=== PATIENT | male | born 1980 | race Caucasian/White ===

== ENCOUNTER → 2016-08-27 | Outpatient (CLI) | payer OTHER ==
[~2016-08-27] MED LIST: ADV250INH INH; ALBU17IN INH; ARTIDRO3 OP; INDO50CA PO; REST0.05 OP; ULOR80TA PO; [UNRECOGNIZED DRUG - CODE] PO
[2016-08-27 18:25] LABS: ALBUMIN 4.6 GM/DL (3.2-5.2); ALBUMIN/GLOBULIN RATIO 1.64 (1.00-1.93); ALKALINE PHOSPHATASE 107 U/L (45-117); ALT/SGPT 94 U/L (12-78); ANION GAP 8 MEQ/L (8-16); AST/SGOT 42 U/L (15-37); BILIRUBIN,TOTAL 1.2 MG/DL (0.2-1.0); BLOOD UREA NITROGEN 9 MG/DL (7-18); CALCIUM LEVEL 9.3 MG/DL (8.5-10.1); CARBON DIOXIDE LEVEL 27 MEQ/L (21-32); CHLORIDE LEVEL 109 MEQ/L (98-107); CREATININE FOR GFR 1.16 MG/DL (0.70-1.30); GLOMERULAR FILTRATION RATE > 60.0 (>60); GLUCOSE, FASTING 82 MG/DL (70-105); POTASSIUM SERUM 4.7 MEQ/L (3.5-5.1); SODIUM LEVEL 144 MEQ/L (136-145); TOTAL PROTEIN 7.4 GM/DL (6.4-8.2); URIC ACID 8.5 MG/DL (3.5-7.2)
== END ==
LOC: M WUC 10:06
PROVIDERS: ATTEND Physician Assistant
DX: M10.00 Idiopathic gout, unspecified site (principal)

== ENCOUNTER → 2016-08-29 | Outpatient (REF) | payer OTHER | LOC: M SFHCPLAZ 14:51 | PROVIDERS: ATTEND Physician Assistant | DX: E55.9 Vitamin D deficiency, unspecified (principal) ==

== ENCOUNTER → 2016-10-17 | Outpatient (REF) | payer OTHER ==
[2016-10-17 14:38] LABS: URIC ACID 5.1 MG/DL (3.5-7.2)
== END ==
LOC: M SFHCPLAZ 10:36
PROVIDERS: ATTEND Physician Assistant
DX: M10.9 Gout, unspecified (principal); E55.9 Vitamin D deficiency, unspecified

== ENCOUNTER → 2017-03-06 | Outpatient (REF) | payer OTHER | LOC: M SFHCPLAZ 09:40 | PROVIDERS: ATTEND Physician Assistant | DX: E55.9 Vitamin D deficiency, unspecified (principal) ==